=== PATIENT | female | born 1945 | race Caucasian/White ===

== ENCOUNTER 2020-11-12 08:47 | Emergency (ER) | payer MEDICARE, BC | END 2020-11-12 09:30 | disposition home or self-care (01) | LOC: MADERS 08:47 | DX: H60.92 Unspecified otitis externa, left ear (principal); H69.82 Other specified disorders of Eustachian tube, left ear; K74.60 Unspecified cirrhosis of liver; E11.9 Type 2 diabetes mellitus without complications | CPT/HCPCS: 99283 ==

== ENCOUNTER 2023-02-07 13:08 | Emergency (ER) | payer MEDICARE, BC ==
[2023-02-07] MEDS ORDERED: Acetaminophen 325 MG TAB ONE (14:26)
== END 2023-02-07 15:05 | disposition home or self-care (01) ==
LOC: MADERS 13:08
DX: S82.831A Other fracture of upper and lower end of right fibula, initial encounter for closed fracture (principal); E11.22 Type 2 diabetes mellitus with diabetic chronic kidney disease; I12.9 Hypertensive chronic kidney disease with stage 1 through stage 4 chronic kidney disease, or unspecified chronic kidney disease; N18.9 Chronic kidney disease, unspecified; W18.39XA Other fall on same level, initial encounter